=== PATIENT | male | born 1960 | race Two or more races ===

== ENCOUNTER 2023-09-15 13:02 | Emergency (ER) | payer OTHER ==
[~2023-09-15] VITALS: Ht 154.9 cm; Wt 54.4 kg
[2023-09-15 14:32] LABS: HEMOGLOBIN 10.4 g/dL (13-16.00); MEAN CELL VOLUME 88.3 fL (80.0-100.00); MEAN CORPUSCULAR HEMOGLOBIN 27.7 pg (27.00-32.0); MEAN CORPUSCULAR HGB CONC 31.4 g/dl (32.0-36.0); PLATELET COUNT 313 K/uL (150-450); RED BLOOD COUNT 3.74 M/uL (4.00-6.00); RED CELL DISTRIBUTION WIDTH 15.4 % (11.5-14.5)
[2023-09-15 14:53] LABS: CALCIUM 7.6 mg/dL (8.5-10.1); CREATININE SERUM 0.5 mg/dL (0.70-1.30); GFR 167.94
[2023-09-15 15:06] LABS: POTASSIUM 2.83 mEq/L (3.5-5.1)
[2023-09-15 22:10] LABS: URINE APPEARANCE Cloudy; URINE BACTERIA 28.9 uL (0.0-1933); URINE BILIRRUBIN Negative (NEGATIVE); URINE BLOOD Negative; URINE COLOR Yellow; URINE EPITHELIAL CELLS 36.1 uL (0.0-38.8); URINE GLUCOSE Negative (NEGATIVE); URINE LEUKOCYTE Negative; URINE NITRATE Negative; URINE PROTEIN 30 (NEGATIVE); URINE RBC 6.7 uL (0.0-20.8); URINE WBC 15.9 uL (0.0-23.2)
[2023-09-16 06:11] LABS: HEMATOCRIT 31.7 % (39.0-48.0); HEMOGLOBIN 10.1 g/dL (13-16.00); MEAN CELL VOLUME 89.1 fL (80.0-100.00); MEAN CORPUSCULAR HEMOGLOBIN 28.4 pg (27.00-32.0); MEAN CORPUSCULAR HGB CONC 31.9 g/dl (32.0-36.0); PLATELET COUNT 300 K/uL (150-450); RED BLOOD COUNT 3.55 M/uL (4.00-6.00); RED CELL DISTRIBUTION WIDTH 15.3 % (11.5-14.5)
[2023-09-16 06:27] LABS: INR 1.12; PARTIAL THROMBOPLASTIN TIME 29.8 SECONDS (22.0-34.0); PROTHROMBIN TIME 11.7 SECONDS (9.0-11.5)
[2023-09-16 09:36] LABS: CALCIUM 7.7 mg/dL (8.5-10.1); CREATININE SERUM 0.58 mg/dL (0.70-1.30); GFR 141.5; POTASSIUM 3.16 mEq/L (3.5-5.1)
== END 2023-09-16 11:41 | disposition home or self-care (01) ==
LOC: ER 13:02
PROVIDERS: Emergency Medicine; General Practice
DX: K62.5 Hemorrhage of anus and rectum (principal); Z91.041 Radiographic dye allergy status; D72.828 Other elevated white blood cell count; Z20.822 Contact with and (suspected) exposure to COVID-19; K52.89 Other specified noninfective gastroenteritis and colitis; I88.0 Nonspecific mesenteric lymphadenitis; K44.9 Diaphragmatic hernia without obstruction or gangrene
CPT/HCPCS: 36415; 74177; 96365; 96366; 99284; J2543; J3490; J7030; Q9965